=== PATIENT | female | born 1950 | race African-American/Black ===

== ENCOUNTER 2016-11-07 13:42 | Day surgery (SDC) | payer OTHER ==
[2016-11-07 14:26] VITALS: BMI 27.6
[2016-11-07 15:08] VITALS: TEMP 97.5
[2016-11-07 16:04] VITALS: BP 165/74; PULSE 50
--- NOTE | 2016-11-09 12:15 | PATH ---
Surgical Pathology Report Patient Name: TRINIDAD HAYES [facility]. Rec. #: [id number] /Age/Gender: 1950 (Age: 66) / F Account: [id number] Location: U-ENDOSCOPY Taken: 11/07/2016 Received: 11/08/2016 Reported: 11/09/2016 Physicians: Man Vital M.D. Specimen(s) Received A: BX PYLORIC INFLAMMATION B: BX ESOPHAGUS Clinical History Hiatal hernia Pyloric inflammation, 3 cm hiatal hernia, gastritis, bowel reflux Final Diagnosis A. PYLORUS, INFLAMMATION, BIOPSY: GASTRIC ANTRAL MUCOSA WITH MODERATE CHRONIC GASTRITIS WITH FOCAL INTESTINAL METAPLASIA AND REACTIVE GASTROPATHY. NEGATIVE FOR DYSPLASIA. IMMUNOSTAIN FOR H. PYLORI IS NEGATIVE FOR ORGANISMS. B. ESOPHAGUS, BIOPSY: SQUAMOUS EPITHELIUM WITH CHRONIC INFLAMMATION AND REFLUX TYPE CHANGES. NO COLUMNAR EPITHELIUM PRESENT (NO INTESTINAL METAPLASIA/MOON'S ESOPHAGUS IDENTIFIED). NO EVIDENCE OF EOSINOPHILIC ESOPHAGITIS. Electronically Signed Karan Mooney M.D. Gross Description A. Received in formalin, labeled "biopsy pyloric inflammation" are 2 harmon, irregular portions of soft tissue measuring 0.1 and 0.2 cm in greatest dimension. The specimens are submitted in toto in one cassette. B. Received in formalin, labeled "biopsy esophagus" are 2 harmon, irregular portions of soft tissue measuring 0.3 and 0.4 cm in greatest dimension. The specimens are submitted in toto in one cassette. 11/08/201611/08/2016
== END 2016-11-07 16:11 | disposition home or self-care (01) ==
LOC: JASU-ENDO 13:42
PROVIDERS: ATTEND Internal Medicine Gastroenterology
PROC: 0DB68ZX Excision of Stomach, Via Natural or Artificial Opening Endoscopic, Diagnostic (ICD-10-PCS; principal; 2016-11-07 14:30)
DX: K21.9 Gastro-esophageal reflux disease without esophagitis (principal); K29.60 Other gastritis without bleeding; K44.9 Diaphragmatic hernia without obstruction or gangrene
CPT/HCPCS: 88305-TC; 88342-TC

== ENCOUNTER 2017-02-02 12:52 | Emergency (ER) | payer OTHER ==
[2017-02-02 13:05] VITALS: BMI 27.9
[2017-02-02 14:09] LABS: BASOPHIL 1.7 % (0-2.0); EOSINOPHIL 2.8 % (0-4.5); MCH 28.7 pg (25.7-33.7); MEAN CELL VOLUME 89.6 fl (80-96); MEAN PLT VOLUME 8.7 fl (7.5-11.1); NEUTROPHILS 42.2 % (42.8-82.8); PLATELET COUNT 250 K/MM3 (134-434); WHITE BLOOD COUNT 6.3 K/mm3 (4.0-10.0)
[2017-02-02 14:30] LABS: INR 1.06 (0.82-1.09); PROTHROMBIN TIME (PATIENT) 11.7 SEC (9.98-11.88)
--- NOTE | 2017-02-02 14:39 | PDOC ---
History of Present Illness <Angela Garcia - Last Filed: 02/02/17 18:04> - History of Present Illness Initial Comments: 02/02/17 14:31 " The patient is a 66 year old female, with a significant past medical history of HIV, HLD, HTN, COPD, GERD and Hiatal Hernia, who presents to the emergency department with lightheadedness and generalized weakness for two days. The patient describes her dizziness as a sensation that she is about to faint. Denies room-spinning sensation. She denies any alleviating or aggravating factors to her dizziness. She denies double vision and blurred vision. Denies F/ C. Denies weakness on one side of her body. She denies chest pain, shortness of breath, headache. She denies fever, chills, nausea, vomit, diarrhea and constipation. She denies dysuria, frequency, urgency and hematuria. Allergies: NKDA Past surgical history: cholecystectomy, tonsillectomy, tubal ligation, left TKR [employer] - Dr. Jesus Vargas " <Timothy Sanchez - Last Filed: 02/02/17 19:03> - General Chief Complaint: Weakness Stated Complaint: WEAKNESS Time Seen by Provider: 02/02/17 13:30 Past History <Angela Garcia - Last Filed: 02/02/17 18:04> - Past Medical History Anemia: No Asthma: No Cancer: No Cardiac Disorders: No CVA: No COPD: Yes CHF: No Dementia: No Diabetes: No GI Disorders: Yes (REFLUX, HIATAL HERNIA) Disorders: No HTN: Yes Hypercholesterolemia: Yes HIV: Yes Liver Disease: No Seizures: No Thyroid Disease: No - Surgical History Abdominal Surgery: No Appendectomy: No Cardiac Surgery: No Cholecystectomy: Yes Lung Surgery: No Neurologic Surgery: No Orthopedic Surgery: Yes (left knee replacement 2009) - Psycho/Social/Smoking Cessation Hx Suicidal Ideation: No Smoking History: Former smoker Have you smoked in the past 12 months: Yes Number of Cigarettes Smoked Daily: 0 If you are a former smoker, when did you quit?: 10 YEARS Cigars Per Day: 0 Information on smoking cessation initiated: No Hx Alcohol Use: Yes (many yrs since last use) Drug/Substance Use Hx: Yes (none x 10+ years) Substance Use Type: Alcohol, Cocaine Hx Substance Use Treatment: Yes (detox, rehab) <Timothy Sanchez - Last Filed: 02/02/17 19:03> - Past Medical History Allergies/Adverse Reactions: Allergies Allergy/AdvReac Type Severity Reaction Status Date / Time Penicillins Allergy Severe Hives Verified 02/02/17 12:55 Shellfish Allergy Severe Itching Verified 02/02/17 12:55 propoxyphene HCl Allergy Mild Nausea Verified 02/02/17 12:55 [From Darvon] iodine [Iodine] AdvReac Severe Hives Verified 02/02/17 12:55 Sulfa (Sulfonamide AdvReac Mild Itching Verified 02/02/17 12:55 Antibiotics) Home Medications: Ambulatory Orders Vitamin B Complex 1 tab PO DAILY 03/31/16 Albuterol 0.083% Nebulizer Maureen [Ventolin 0.083% Nebulizer Soln -] 1 neb NEB Q4H #1 box 08/03/16 Atorvastatin Ca [Lipitor] 10 mg PO HS #30 tablet 08/03/16 Diclofenac Sodium [Voltaren] 100 gm TP QID #3 gel..gram. MDD 2gm 08/03/16 Diphenhydramine [Benadryl Capsule -] 50 tab PO HS PRN #30 capsule 08/03/16 Hydrochlorothiazide [Hctz -] 25 mg PO DAILY #30 tablet 08/03/16 Lisinopril 10 mg PO DAILY #30 tablet 08/03/16 Esomeprazole Magnesium 40 mg PO BID #60 capsule. 08/29/16 Loratadine [Claritin -] 10 mg PO DAILY #30 tablet 09/21/16 Darunavir Ethanolate [Prezista -] 1 tab PO DAILY #30 tab 10/27/16 Elviteg/Natasha/Emtric/Tenofo Ala [Genvoya Tablet] 1 tab PO DAILY #30 tab 10/27/16 Zolpidem Tartrate [Ambien] 10 mg PO HS PRN #30 tablet MDD 1 01/02/17 Oxycodone HCl/Acetaminophen [Percocet 10-325 mg Tablet] 1 each PO QID PRN #110 tablet MDD 4 01/11/17 Review of Systems - Review of Systems Comments:: 02/02/17 14:39 " GENERAL/CONSTITUTIONAL: (+) generalized weakness. No fever or chills. HEAD, EYES, EARS, NOSE AND THROAT: No change in vision. No ear pain or discharge. No sore throat. CARDIOVASCULAR: (+) lightheadedness. No chest pain or shortness of breath. RESPIRATORY: No cough, wheezing, or hemoptysis. GASTROINTESTINAL: No nausea, vomiting, diarrhea or constipation. GENITOURINARY: No dysuria, frequency, or change in urination. MUSCULOSKELETAL: No joint or muscle swelling or pain. No neck or back pain. SKIN: No rash NEUROLOGIC: No headache, loss of consciousness, or change in strength/ sensation. ENDOCRINE: No increased thirst. No abnormal weight change. HEMATOLOGIC/LYMPHATIC: No anemia, easy bleeding, or history of blood clots. ALLERGIC/IMMUNOLOGIC: No hives or skin allergy." <Timothy Sanchez - Last Filed: 02/02/17 19:03> *Physical Exam - Vital Signs Last Vital Signs Temp Pulse Resp BP Pulse Ox 98 F 47 L 18 192/75 98 02/02/17 12:58 02/02/17 12:58 02/02/17 12:58 02/02/17 12:58 02/02/17 12:58 <Angela Garcia - Last Filed: 02/02/17 18:04> - Vital Signs Last Vital Signs Temp Pulse Resp BP Pulse Ox 98 F 47 L 18 192/75 98 02/02/17 12:58 02/02/17 12:58 02/02/17 12:58 02/02/17 12:58 02/02/17 12:58 - Physical Exam Comments: 02/02/17 14:39 """GENERAL: Awake, alert, and fully oriented, in no acute distress HEAD: No signs of trauma EYES: PERRLA, EOMI, sclera anicteric, conjunctiva clear ENT: Auricles normal inspection, hearing grossly normal, nares patent, oropharynx clear without exudates. Moist mucosa NECK: Normal ROM, supple, no lymphadenopathy, JVD, or masses LUNGS: Breath sounds equal, clear to auscultation bilaterally. No wheezes, and no crackles HEART: Regular rate and rhythm, normal S1 and S2, no murmurs, rubs or gallops ABDOMEN: Soft, nontender, normoactive bowel sounds. No guarding, no rebound. No masses EXTREMITIES: Normal range of motion, no edema. No clubbing or cyanosis. No cords, erythema, or tenderness NEUROLOGICAL: Cranial nerves II through XII intact, 5/5 strength and sensation in all extremities, normal [id number], no nystagmus, no pronator drift SKIN: Warm, Dry, normal turgor, no rashes or lesions noted. """ <OuTimothy - Last Filed: 02/02/17 19:03> Heart Score/ECG Review - ECG Impressions Comment:: 02/02/17 14:40 NSR, rate 47, no MIKE/STDs, no TWIs, intervals wnl <Ou,Timothy - Last Filed: 02/02/17 19:03> ED Treatment Course - LABORATORY CBC & Chemistry Diagram: 02/02/17 13:35 02/02/17 13:35 - ADDITIONAL ORDERS Additional order review: Laboratory Results 02/02/17 02/02/17 02/02/17 15:44 13:51 13:50 INR PTT (Actin FS) Sodium Potassium Chloride Carbon Dioxide Anion Gap BUN Creatinine Creat Clearance w eGFR Random Glucose Lactic Acid 0.7 Calcium Total Bilirubin AST ALT Alkaline Phosphatase Creatine Kinase Cancelled Troponin I Cancelled Total Protein Albumin TSH Urine Color Ltyellow Urine Appearance Clear Urine pH 7.0 D Urine Protein Negative Urine Glucose (UA) Negative Urine Ketones Negative Urine Blood Negative Urine Nitrite Negative Urine Bilirubin Negative Urine Urobilinogen Negative Ur Leukocyte Esterase Negative 02/02/17 02/02/17 02/02/17 13:42 13:35 13:35 INR 1.06 PTT (Actin FS) 34.0 Sodium Cancelled Potassium Cancelled Chloride Cancelled Carbon Dioxide Cancelled Anion Gap Cancelled BUN Cancelled Creatinine Cancelled Creat Clearance w eGFR Cancelled Random Glucose Cancelled Lactic Acid Calcium Cancelled Total Bilirubin Cancelled AST Cancelled ALT Cancelled Alkaline Phosphatase Cancelled Creatine Kinase Troponin I Total Protein Cancelled Albumin Cancelled TSH Cancelled Urine Color Urine Appearance Urine pH Urine Protein Urine Glucose (UA) Urine Ketones Urine Blood Urine Nitrite Urine Bilirubin Urine Urobilinogen Ur Leukocyte Esterase 02/02/17 13:35 RBC 4.47 MCV 89.6 MCHC 32.0 RDW 18.0 H MPV 8.7 Neutrophils % 42.2 L Lymphocytes % 44.0 H Monocytes % 9.3 Eosinophils % 2.8 Basophils % 1.7 - RADIOLOGY Radiograph Interpretation: 02/02/17 18:03 EXAM#: TYPE/EXAM: RESULT: [id number] CT/HEAD CT WITHOUT CONTRAST Cranial CT without contrast Clinical information: weakness No intracranial hemorrhage is seen. There is no discrete infarct within the limitations of CT. Mild to moderate periventricular and subcortical microvascular ischemic gliosis is noted which is probably mildly increased in comparison to a prior CT study of 10/18/2013. There is no extra-axial fluid collection. No gross mass lesion is seen. The ventricles and cisterns appear unremarkable. Impression: No definite CT evidence of acute intracranial pathology. Mild to moderate periventricular and subcortical chronic microvascular ischemic changes. Reported By: Sebastien Espana MD 02/02/17 1721 <Angela Garcia - Last Filed: 02/02/17 18:04> - LABORATORY CBC & Chemistry Diagram: 02/02/17 13:35 02/02/17 17:10 - ADDITIONAL ORDERS Additional order review: Laboratory Results 02/02/17 02/02/17 13:42 13:35 INR 1.06 PTT (Actin FS) 34.0 02/02/17 13:35 RBC 4.47 MCV 89.6 MCHC 32.0 RDW 18.0 H MPV 8.7 Neutrophils % 42.2 L Lymphocytes % 44.0 H Monocytes % 9.3 Eosinophils % 2.8 Basophils % 1.7 - RADIOLOGY Radiology Studies Ordered: Category Date Time Status HEAD CT WITHOUT CONTRAST [CT] Stat CT Scan 02/02/17 13:42 Ordered CHEST X-RAY PORTABLE* [RAD] Stat Radiology 02/02/17 13:42 Completed <Timothy Sanchez - Last Filed: 02/02/17 19:03> Medical Decision Making - Medical Decision Making 02/02/17 15:00 Dr. Vargas, [employer], was paged overhead requesting a call back to [phone]. 02/02/17 15:40 Dr. Vargas was paged overhead requesting a call back to [phone]. 02/02/17 16:26 Dr. Vargas was paged via phone answering service requesting a call back to [phone] for a doctor to doctor consult 02/02/17 16:56 Dr. Vargas was paged a second time via phone answering service requesting a call back to [phone] for a doctor to doctor consult. I was informed Dr. Redding is covering Dr. Vargas today and will return the call shortly. 02/02/17 17:30 Dr. Vazquez returned the call and the patient's case was discussed. <Angela Garcia - Last Filed: 02/02/17 18:04> - Medical Decision Making 02/02/17 14:41 66 F with generalized weakness and presyncope, found to have HR in 40s. EKG is normal sinus. Pt is taking lisinopril and HCTZ for BP, no AV romel blocking agents. Pt with normal BP, making it unlikely that bradycardia is cause of lightheadedness. Will work up for other causes of weakness and lightheadedness, such as infection or metabolic derangement. Also consider intracranial process, though pt with no focal neuro deficits on exam. - Labs, trop, UA, CXR - CTH 02/02/17 18:56 CBC,CMP WBC 6.3 K/mm3 (4.0-10.0) 02/02/17 13:35 RBC 4.47 M/mm3 (3.60-5.2) 02/02/17 13:35 Hgb 12.8 GM/dL (10.7-15.3) 02/02/17 13:35 Hct 40.0 % (32.4-45.2) 02/02/17 13:35 MCV 89.6 fl (80-96) 02/02/17 13:35 MCH 28.7 pg (25.7-33.7) 02/02/17 13:35 MCHC 32.0 g/dl (32.0-36.0) 02/02/17 13:35 RDW 18.0 % (11.6-15.6) H 02/02/17 13:35 Plt Count 250 K/MM3 (134-434) 02/02/17 13:35 MPV 8.7 fl (7.5-11.1) 02/02/17 13:35 Neutrophils % 42.2 % (42.8-82.8) L 02/02/17 13:35 Lymphocytes % 44.0 % (8-40) H 02/02/17 13:35 Monocytes % 9.3 % (3.8-10.2) 02/02/17 13:35 Eosinophils % 2.8 % (0-4.5) 02/02/17 13:35 Basophils % 1.7 % (0-2.0) 02/02/17 13:35 Sodium 143 mmol/L (136-145) 02/02/17 17:10 Potassium 4.3 mmol/L (3.5-5.1) 02/02/17 17:10 Chloride 106 mmol/L (98-107) 02/02/17 17:10 Carbon Dioxide 29 mmol/L (21-32) 02/02/17 17:10 Anion Gap 8 (8-16) 02/02/17 17:10 BUN 8 mg/dL (7-18) D 02/02/17 17:10 Creatinine 0.6 mg/dL (0.55-1.02) D 02/02/17 17:10 Creat Clearance w eGFR > 60 (>60) 02/02/17 17:10 Random Glucose 75 mg/dL (74-106) 02/02/17 17:10 Lactic Acid 0.7 mmol/L (0.4-2.0) 02/02/17 13:50 Calcium 9.2 mg/dL (8.5-10.1) 02/02/17 17:10 Total Bilirubin 0.6 mg/dL (0.2-1.0) 02/02/17 17:10 AST 20 U/L (15-37) 02/02/17 17:10 ALT 22 U/L (12-78) 02/02/17 17:10 Alkaline Phosphatase 93 U/L (45-117) 02/02/17 17:10 Creatine Kinase 331 IU/L (26-192) H 02/02/17 17:10 Troponin I < 0.02 ng/ml (0.00-0.05) 02/02/17 17:10 B-Natriuretic Peptide 198.65 pg/ml (5-125) H 02/02/17 17:10 Total Protein 6.8 g/dl (6.4-8.2) 02/02/17 17:10 Albumin 3.8 g/dl (3.4-5.0) 02/02/17 17:10 TSH 0.69 uIU/ml (0.358-3.74) D 02/02/17 17:10 CTH negative CXR clear UA clean Infectious work up negative. Metabolic work up wnl. Troponin negative. Spoke with quarter lining smoother Dr. Vazquez and reviewed EKG with him. Given pt's normal BP, it is unlikely that pt's bradycardia is cause of pt's lightheadedness. Pt reassessed, now feels back to baseline. Is ambulatory with stable gait. Pt states she feels well and would like to go home. Stable for DC at this time. <Timothy Sanchez - Last Filed: 02/02/17 19:03> *DC/Admit/Observation/Transfer - Attestations Scribe Attestion: 02/02/17 18:04 Documentation prepared by Angela Garcia, acting as medical device for Timothy Sanchez MD <Angela Garcia - Last Filed: 02/02/17 18:04> - Attestations Physician Attestion: 02/02/17 19:03 I, Dr. Timothy Sanchez MD, attest that this document has been prepared under my direction and personally reviewed by me in its entirety. I further attest, that it accurately reflects all work, treatment, procedures and medical decision -making performed by me. <Timothy Sanchez - Last Filed: 02/02/17 19:03> Diagnosis at time of Disposition: Weakness - Discharge Dispostion Disposition: HOME - Referrals Referrals: Linda Hooks NP [Primary Care Provider] - Jesus Vargas MD [Staff Physician] - - Patient Instructions Printed Discharge Instructions: Dizziness, Nonvertigo Additional Instructions: You must follow up with your primary care doctor and quarter lining smoother for further work up of your lightheadedness. If you experience worsening or persistent symptoms, chest pain, shortness of breath, palpitations, or any other concerning symptoms, return to the ER immediately. Print Language: TAMAZIGHT
[2017-02-02 16:09] LABS: URINE APPEARANCE CLEAR; URINE BILIRUBIN NEGATIVE (NEGATIVE); URINE BLOOD NEGATIVE (NEGATIVE); URINE COLOR LTYELLOW; URINE GLUCOSE (UA) NEGATIVE (NEGATIVE); URINE KETONE NEGATIVE (NEGATIVE); URINE LEUK ESTERASE NEGATIVE (NEGATIVE); URINE NITRITE NEGATIVE (NEGATIVE); URINE PROTEIN NEGATIVE (NEGATIVE); URINE UROBILINOGEN NEGATIVE mg/dL (0.2-1.0)
[2017-02-02 18:06] VITALS: BP 164/75; PULSE 54; TEMP 98.2
[2017-02-02 18:27] LABS: ALBUMIN 3.8 g/dl (3.4-5.0); ANION GAP 8 (8-16); BILIRUBIN,TOTAL 0.6 mg/dL (0.2-1.0); CALCIUM 9.2 mg/dL (8.5-10.1); CO2 29 mmol/L (21-32); CREATININE 0.6 mg/dL (0.55-1.02); GLUCOSE,RANDOM 75 mg/dL (74-106); SGOT/AST 20 U/L (15-37); SGPT/ALT 22 U/L (12-78); TOT PROT 6.8 g/dl (6.4-8.2)
[2017-02-02 18:28] LABS: ALK PHOS 93 U/L (45-117)
[2017-02-02 18:30] LABS: CPK 331 IU/L (26-192); TROPONIN I < 0.02 ng/ml (0.00-0.05)
--- NOTE | 2017-02-03 09:07 | EKG ---
Test Reason : Blood Pressure : / mmHG Vent. Rate : 047 BPM Atrial Rate : 047 BPM P-R Int : 140 ms QRS Dur : 070 ms QT Int : 466 ms P-R-T Axes : 036 012 017 degrees QTc Int : 412 ms SINUS BRADYCARDIA POSSIBLE LEFT ATRIAL ENLARGEMENT NONSPECIFIC ST ABNORMALITY WHEN COMPARED WITH ECG OF 15-JUN-2015 14:38, NO SIGNIFICANT CHANGE WAS FOUND Confirmed by TIMOTHY NARVAEZ MD ([id number]) on 02/03/2017 9:07:06 AM Referred By: Confirmed By:TIMOTHY NARVAEZ MD
== END 2017-02-02 19:18 | disposition home or self-care (01) ==
LOC: JER 12:52
DX: R53.1 Weakness (principal); Z21 Asymptomatic human immunodeficiency virus [HIV] infection status; E78.5 Hyperlipidemia, unspecified; I10 Essential (primary) hypertension; J44.9 Chronic obstructive pulmonary disease, unspecified; K21.9 Gastro-esophageal reflux disease without esophagitis
CPT/HCPCS: 36415; 70450-TC; 71010-TC; 80053; 81003; 82553; 83605; 83880; 84443; 84484; 85025; 85610; 85730; 93005; 93010; 99285-25; G0463-25

== ENCOUNTER 2018-02-26 12:27 | Inpatient (IN) | payer OTHER ==
[2018-02-26 12:37] VITALS: BMI 27.1
--- NOTE | 2018-02-26 13:18 | PDOC ---
Attending Attestation - Resident Resident Name: AngelnhungDaniel - ED Attending Attestation I have performed the following: I have examined & evaluated the patient, The case was reviewed & discussed with the resident, I agree w/resident's findings & plan, Exceptions are as noted - HPI HPI: 02/26/18 15:04 The patient is a 67 year old female, with a significant past medical history of HIV (currently undetectable taking Truvada), HLD, HTN, COPD, GERD and Hiatal Hernia, who presents to the emergency department with generalized weakness, dizziness, and low heart rate sent by her PCP today. She states she has been feeling lightheaded and dizzy for about a week before being see by her PCP for a routine visit. The patient denies chest pain, shortness of breath, headache, neck pain..The patient denies fever, chills, nausea, vomit, diarrhea and constipation. The patient denies dysuria, frequency, urgency and hematuria. Pt denies any focla numbnes/tingling/weakness. Denies any vision changes, double vision, speech difficulty. Allergies: NKDA Past surgical history: cholecystectomy, tonsillectomy, tubal ligation, left TKR [employer] - Dr. Jesus Vargas PCP: Nicole Hooks - Physicial Exam PE: 02/26/18 15:05 GENERAL: The patient is awake, alert, and fully oriented, Nontoxic - in no acute distress. HEAD: Normocephalic, atraumatic. EYES: extraocular movements intact, sclera anicteric, conjunctiva clear.No nystagmus ENT: Normal voice, Moist mucous membranes. NECK: Normal range of motion, supple LUNGS: Breath sounds equal, clear to auscultation bilaterally. No wheezes, no rhonchi, no rales. HEART: bradycardic, no mrg ABDOMEN: Soft, nontender, normoactive bowel sounds. No guarding, no rebound. . No CVA tenderness EXTREMITIES: Normal range of motion, no edema. No clubbing or cyanosis. No cords, erythema, or tenderness. NEUROLOGICAL: No facial assymetry, Normal speech, Normal finger to nose, normal rapid alternating movements, normal 5/5 strength in upper and lower extremities, no drift PSYCH: Normal mood, normal affect. SKIN: Warm, Dry, normal turgor, - Medical Decision Making 02/26/18 15:06 Will obtain blood work to rule out anemia, metabolic derangements, EKG noted for sinus bradycardia Intact neurologic exam including no signs of dysmetria 02/26/18 17:06 pts labs reviewed pts HR persistently in the mid to high 40s bp not hypotensive will admit for further management per PMD Heart Score/ECG Review - ECG Impressions Comment:: 02/26/18 15:07 Twelve-lead EKG was performed and reviewed by me. There is normal sinus rhythm with a rate of 48 Nonspecific T-wave inversion in lead 3 impL sinus braydcardia
--- NOTE | 2018-02-26 13:38 | PDOC ---
History of Present Illness - General Chief Complaint: Irregular Heart Beat Stated Complaint: IRREGULAR HEARTBEAT Time Seen by Provider: 02/26/18 13:05 History Source: Patient Exam Limitations: No Limitations - History of Present Illness Initial Comments: 02/26/18 13:33 Patient is 67F with history of HIV (undetectable viral levels, CD4 678 on 11/10/17 ), HTN, GERD, hiatal hernia sent in by her PCP for weakness, dizziness and bradycardia. Patient reports that her HR was 43 in the office. Endorses chest pain on the left side that is worse with palpation. Endorses mild shortness of breath. Patient states that she feels dizzy all the time, but denies any cardiac problems and procedures. Patient endorses compliance with HIV medication (Truvada and Persista). Denies leg swelling, recent travel, history of blood clots. Denies fevers, chills, nausea, vomiting. Past History - Past Medical History Allergies/Adverse Reactions: Allergies Allergy/AdvReac Type Severity Reaction Status Date / Time Penicillins Allergy Severe Hives Verified 02/26/18 12:32 Shellfish Allergy Severe Itching Verified 02/26/18 12:32 propoxyphene HCl Allergy Mild Nausea Verified 02/26/18 12:32 [From Darvon] iodine [Iodine] AdvReac Severe Hives Verified 02/26/18 12:32 Sulfa (Sulfonamide AdvReac Mild Itching Verified 02/26/18 12:32 Antibiotics) Home Medications: Ambulatory Orders Esomeprazole Magnesium 40 mg PO BID #60 capsule. 10/03/17 Diphenhydramine HCl [Benadryl -] 1 - 2 cap PO BID PRN #60 capsule MDD 4 Hydrocortisone 2.5% Topical Cr [Anusol-Hc -] 1 applic RC BID #1 tube 12/29/17 Losartan Potassium [Cozaar -] 1 tab PO DAILY 12/29/17 Baclofen 10 mg PO TID PRN #90 tablet 01/08/18 Ergocalciferol [Vitamin D2] 50,000 unit PO Q7D@1000 #4 capsule 01/08/18 Gabapentin [Neurontin -] 300 mg PO Q8H #90 capsule 01/08/18 Albuterol Sulfate Inhaler - [Ventolin HFA Inhaler -] 2 inh PO Q4H #1 inhaler Atorvastatin Calcium [Lipitor] 10 mg PO HS #30 tablet 01/29/18 Darunavir Ethanolate [Prezista -] 600 mg PO BID #60 tab 01/29/18 Emtricitabine/Tenofovir [Truvada -] 1 tab PO DAILY #30 tablet 01/29/18 Hydrochlorothiazide [Hctz -] 25 mg PO DAILY #30 tablet 01/29/18 Ritonavir [Norvir -] 100 mg PO BID #60 tab 01/29/18 Zolpidem Tartrate [Ambien] 10 mg PO HS PRN #30 tablet MDD 1 01/29/18 Naproxen 500 mg PO BID #60 tablet 02/07/18 Oxycodone HCl/Acetaminophen [Percocet 10-325 mg Tablet] 1 each PO TID #90 tablet MDD 3 02/07/18 Anemia: No Asthma: No Cancer: No Cardiac Disorders: No CVA: No COPD: No CHF: No DVT: No Dementia: No Diabetes: No GI Disorders: Yes (REFLUX, HIATAL HERNIA) Disorders: No HTN: Yes Hypercholesterolemia: Yes Liver Disease: No Seizures: No Thyroid Disease: No - Surgical History Abdominal Surgery: No Appendectomy: No Cardiac Surgery: No Cholecystectomy: Yes Lung Surgery: No Neurologic Surgery: No Orthopedic Surgery: Yes (left knee replacement 2009) - Suicide/Smoking/Psychosocial Hx Smoking History: Former smoker Have you smoked in the past 12 months: No Number of Cigarettes Smoked Daily: 0 If you are a former smoker, when did you quit?: 10 YEARS Cigars Per Day: 0 Information on smoking cessation initiated: No Hx Alcohol Use: Yes (many yrs since last use) Drug/Substance Use Hx: Yes (none x 10+ years) Substance Use Type: None Hx Substance Use Treatment: Yes (detox, rehab) Review of Systems - Review of Systems Comments:: 02/26/18 13:37 GENERAL/CONSTITUTIONAL: No fever or chills. No weakness. HEAD, EYES, EARS, NOSE AND THROAT: No change in vision. No sore throat. CARDIOVASCULAR: + chest pain +shortness of breath RESPIRATORY: No cough, wheezing, or hemoptysis. GASTROINTESTINAL: No nausea, vomiting, diarrhea or constipation. GENITOURINARY: No dysuria, frequency, or change in urination. MUSCULOSKELETAL: No joint or muscle swelling or pain. No neck or back pain. SKIN: No rash NEUROLOGIC: No headache, +vertigo, no loss of consciousness, or change in strength/sensation. ENDOCRINE: No increased thirst. No abnormal weight change HEMATOLOGIC/LYMPHATIC: No anemia, easy bleeding, or history of blood clots. ALLERGIC/IMMUNOLOGIC: No hives or skin allergy. *Physical Exam - Vital Signs Last Vital Signs Temp Pulse Resp BP Pulse Ox 98.1 F 48 L 18 173/64 97 02/26/18 12:33 02/26/18 12:33 02/26/18 12:33 02/26/18 12:33 02/26/18 12:33 - Physical Exam Comments: 02/26/18 13:38 GENERAL: Awake, alert, and fully oriented, in no acute distress HEAD: No signs of trauma, normocephalic, atraumatic EYES: PERRLA, EOMI, sclera anicteric, conjunctiva clear ENT: Auricles normal inspection, hearing grossly normal, nares patent, oropharynx clear without exudates. Moist mucosa NECK: Normal ROM, supple, no lymphadenopathy, JVD, or masses LUNGS: No distress, speaks full sentences, clear to auscultation bilaterally HEART: Regular rhythm, bradycardic, normal S1 and S2, no murmurs, rubs or gallops, peripheral pulses normal and equal bilaterally. ABDOMEN: Soft, nontender, normoactive bowel sounds. No guarding, no rebound. No masses EXTREMITIES: Normal inspection, Normal range of motion, no edema. No clubbing or cyanosis. NEUROLOGICAL: Cranial nerves II through XII grossly intact. Normal speech, no focal sensorimotor deficits SKIN: Warm, Dry, normal turgor, no rashes or lesions noted. ED Treatment Course - LABORATORY CBC & Chemistry Diagram: 02/26/18 13:12 02/26/18 13:12 - RADIOLOGY Radiology Studies Ordered: Category Date Time Status CHEST X-RAY PORTABLE* [RAD] Stat Radiology 02/26/18 13:12 Taken Medical Decision Making - Medical Decision Making 02/26/18 13:41 Patient is 67F with history of HIV, HTN, GERD, hiatal hernia here today with weakness and bradycardia. Vital signs show HR of 48. Patient has been bradycardic in the past. DDx includes, but is not limited to: ACS, arrhythmia, electrolyte abnormality, medication side effect. Will do cbc, cmp, trop, pt/inr , ekg, cxr. EKG shows sinus bradycardia with rate of 48 [address] elevations/ depressions. Inverted t wave in III. Normal axis. Normal intervals. 02/26/18 15:36 CBC, CMP normal. PT/INR normal. Troponin undetectable. Patient states that she still feels weak/dizzy. Abdulaziz frederick hospitalist. 02/26/18 23:33 Admitted to [facility]. *DC/Admit/Observation/Transfer Diagnosis at time of Disposition: Bradycardia - Discharge Dispostion Condition at time of disposition: Stable Decision to Admit order: Yes - Referrals - Patient Instructions - Post Discharge Activity
[2018-02-26 14:41] LABS: URINE APPEARANCE CLEAR; URINE BILIRUBIN NEGATIVE (<2.0 mg/dL); URINE COLOR STRAW; URINE GLUCOSE (UA) NEGATIVE (NEGATIVE); URINE KETONE NEGATIVE (NEGATIVE); URINE LEUK ESTERASE NEGATIVE (NEGATIVE); URINE NITRITE NEGATIVE (NEGATIVE); URINE PROTEIN NEGATIVE (NEGATIVE); URINE UROBILINOGEN NEGATIVE mg/dL (0.2-1.0)
[2018-02-26 14:41] LABS: BASO % 2.3 % (0-2.0); EOS % 3.2 % (0-4.5); HEMATOCRIT 38.8 % (32.4-45.2); HEMOGLOBIN 12.6 GM/dL (10.7-15.3); LYMPH % 39.5 % (8-40); MCH 29.3 pg (25.7-33.7); MCHC 32.6 g/dl (32.0-36.0); MEAN CELL VOLUME 89.8 fl (80-96); MEAN PLT VOLUME 9.2 fl (7.5-11.1); MONO % 8.6 % (3.8-10.2); NEUT % 46.4 % (42.8-82.8); PLATELET COUNT 243 K/MM3 (134-434); RBC 4.32 M/mm3 (3.60-5.2); RDW 16.2 % (11.6-15.6); WHITE BLOOD COUNT 5.5 K/mm3 (4.0-10.0)
[2018-02-26 14:55] LABS: EPI CELLS RARE /HPF (FEW); URINE HYALINE CAST 7 /lpf; URINE MUCUS RARE
[2018-02-26 15:01] LABS: INR 1.06 (0.83-1.09)
[2018-02-26 15:08] LABS: ALBUMIN 3.8 g/dl (3.4-5.0); ALK PHOS 100 U/L (45-117); ANION GAP 6 MMOL/L (8-16); BILIRUBIN,TOTAL 0.5 mg/dL (0.2-1); BLOOD UREA NITROGEN 14 mg/dL (7-18); CALCIUM 8.4 mg/dL (8.5-10.1); CHLORIDE 109 mmol/L (98-107); CO2 26 mmol/L (21-32); CREATININE 0.6 mg/dL (0.55-1.3); GLUCOSE,RANDOM 70 mg/dL (74-106); MAGNESIUM 2.2 mg/dL (1.8-2.4); POTASSIUM 3.8 mmol/L (3.5-5.1); SGOT/AST 25 U/L (15-37); SGPT/ALT 31 U/L (13-61); SODIUM 142 mmol/L (136-145); TOT PROT 6.4 g/dl (6.4-8.2)
[2018-02-26] MEDS ORDERED: SODIUM CHLORIDE 1,000 ML IV STA (15:36)
--- NOTE | 2018-02-26 18:07 | EKG ---
Test Reason : Blood Pressure : / mmHG Vent. Rate : 048 BPM Atrial Rate : 048 BPM P-R Int : 136 ms QRS Dur : 074 ms QT Int : 452 ms P-R-T Axes : 044 026 021 degrees QTc Int : 403 ms SINUS BRADYCARDIA WITH PREMATURE ATRIAL COMPLEXES POSSIBLE LEFT ATRIAL ENLARGEMENT BORDERLINE ECG WHEN COMPARED WITH ECG OF 22-DEC-2017 10:29, PREMATURE ATRIAL COMPLEXES ARE NOW PRESENT T WAVE VARIATION Confirmed by HENOK COFFEY, NUUN ([id number]) on 02/26/2018 6:06:48 PM Referred By: Confirmed By:NUNU WHITING MD
--- NOTE | 2018-02-26 20:13 | HP ---
Admitting History and Physical - Primary Care Physician PCP: Tata Saenz - Admission History of Present Illness: 67 year old female, with a significant past medical history of HIV (currently undetectable taking Truvada), HLD, HTN, COPD, GERD and Hiatal Hernia, who presents to the emergency department with generalized weakness, dizziness, and low heart rate sent by her PCP today. She states she has been feeling lightheaded and dizzy for about a week before being see by her PCP for a routine visit. - Past Medical History Cardiovascular: Yes: HTN, Hyperlipdemia ...: No Infectious Disease: Yes: HIV - Smoking History Smoking history: Former smoker Have you smoked in the past 12 months: No Aproximately how many cigarettes per day: 0 If you are a former smoker, when did you quit?: 10 YEARS - Alcohol/Substance Use Hx Alcohol Use: Yes (many yrs since last use) Home Medications - Allergies Allergies/Adverse Reactions: Allergies Allergy/AdvReac Type Severity Reaction Status Date / Time Penicillins Allergy Severe Hives Verified 02/26/18 12:32 Shellfish Allergy Severe Itching Verified 02/26/18 12:32 propoxyphene HCl Allergy Mild Nausea Verified 02/26/18 12:32 [From Darvon] iodine [Iodine] AdvReac Severe Hives Verified 02/26/18 12:32 Sulfa (Sulfonamide AdvReac Mild Itching Verified 02/26/18 12:32 Antibiotics) - Home Medications Home Medications: Ambulatory Orders Esomeprazole Magnesium 40 mg PO BID #60 capsule. 10/03/17 Diphenhydramine HCl [Benadryl Capsule -] 1 - 2 cap PO BID PRN #60 capsule MDD 4 11/10/17 Hydrocortisone 2.5% Topical Cr [Anusol-Hc -] 1 applic RC BID #1 tube 12/29/17 Losartan Potassium [Cozaar -] 1 tab PO DAILY 12/29/17 Baclofen 10 mg PO TID PRN #90 tablet 01/08/18 Ergocalciferol [Vitamin D2] 50,000 unit PO Q7D@1000 #4 capsule 01/08/18 Gabapentin [Neurontin -] 300 mg PO Q8H #90 capsule 01/08/18 Albuterol Sulfate Inhaler - [Ventolin HFA Inhaler -] 2 inh PO Q4H #1 inhaler Atorvastatin Calcium [Lipitor] 10 mg PO HS #30 tablet 01/29/18 Darunavir Ethanolate [Prezista -] 600 mg PO BID #60 tab 01/29/18 Emtricitabine/Tenofovir [Truvada -] 1 tab PO DAILY #30 tablet 01/29/18 Hydrochlorothiazide [Hctz -] 25 mg PO DAILY #30 tablet 01/29/18 Ritonavir [Norvir -] 100 mg PO BID #60 tab 01/29/18 Zolpidem Tartrate [Ambien] 10 mg PO HS PRN #30 tablet MDD 1 01/29/18 Naproxen 500 mg PO BID #60 tablet 02/07/18 Oxycodone HCl/Acetaminophen [Percocet 10-325 mg Tablet] 1 each PO TID #90 tablet MDD 3 02/07/18 Family Disease History - Family Disease History Family Disease History: Diabetes: Brother (1 brother), Heart Disease: Brother, [place]: Grandparent (mat gma br ca, pat gfa tb), Father (lung ca age 88), Other: Mother ( 85 natural causes), Sister (2 sisters a&w) Physical Examination Vital Signs: Vital Signs Temperature 98 F 02/26/18 18:49 Pulse Rate 58 L 02/26/18 18:49 Respiratory Rate 18 02/26/18 18:49 Blood Pressure 146/72 02/26/18 18:49 O2 Sat by Pulse Oximetry (%) 98 02/26/18 15:08 Constitutional: Yes: No Distress HENT: Yes: Atraumatic Neck: Yes: Supple Cardiovascular: Yes: Regular Rate and Rhythm Respiratory: Yes: CTA Bilaterally Gastrointestinal: Yes: Normal Bowel Sounds Extremities: Yes: WNL Edema: No Neurological: Yes: Alert, Oriented Labs: CBC, BMP 02/26/18 13:12 02/26/18 13:12 Problem List - Problems (1) Dizziness Assessment/Plan: resolved will monitor on tele Code(s): R42 - DIZZINESS AND GIDDINESS (2) Bradycardia Assessment/Plan: awaiting cardiology input tele monitoring Code(s): R00.1 - BRADYCARDIA, UNSPECIFIED (3) HIV (human immunodeficiency virus infection) Assessment/Plan: on meds stabel Code(s): Z21 - ASYMPTOMATIC HUMAN IMMUNODEFICIENCY VIRUS INFECTION STATUS (4) Hypercholesteremia Assessment/Plan: on meds stable Code(s): E78.0 - PURE HYPERCHOLESTEROLEMIA * DO NOT USE * (5) Hypertension Assessment/Plan: on meds Code(s): I10 - ESSENTIAL (PRIMARY) HYPERTENSION Qualifiers: Hypertension type: essential hypertension Qualified Code(s): I10 - Essential (primary) hypertension Assessment/Plan Laboratory Results - last 24 hr 02/26/18 02/26/18 02/26/18 13:12 13:12 13:12 WBC 5.5 RBC 4.32 Hgb 12.6 Hct 38.8 MCV 89.8 MCH 29.3 MCHC 32.6 RDW 16.2 H Plt Count 243 MPV 9.2 Absolute Neuts (auto) 2.6 Neutrophils % 46.4 Lymphocytes % 39.5 Monocytes % 8.6 Eosinophils % 3.2 D Basophils % 2.3 H Nucleated RBC % 0 PT with INR 12.00 INR 1.06 Sodium 142 Potassium 3.8 Chloride 109 H Carbon Dioxide 26 Anion Gap 6 L BUN 14 Creatinine 0.6 Creat Clearance w eGFR > 60 Random Glucose 70 L Calcium 8.4 L Magnesium 2.2 Total Bilirubin 0.5 AST 25 ALT 31 Alkaline Phosphatase 100 Creatine Kinase 404 H Creatine Kinase Index 0.9 CK-MB (CK-2) 3.8 H Troponin I < 0.02 Total Protein 6.4 Albumin 3.8 Urine Color Urine Appearance Urine pH Ur Specific [place] Urine Protein Urine Glucose (UA) Urine Ketones Urine Blood Urine Nitrite Urine Bilirubin Urine Urobilinogen Ur Leukocyte Esterase Urine WBC (Auto) Urine RBC (Auto) Ur Epithelial Cells Hyaline Casts Urine Mucus 02/26/18 14:20 WBC RBC Hgb Hct MCV MCH MCHC RDW Plt Count MPV Absolute Neuts (auto) Neutrophils % Lymphocytes % Monocytes % Eosinophils % Basophils % Nucleated RBC % PT with INR INR Sodium Potassium Chloride Carbon Dioxide Anion Gap BUN Creatinine Creat Clearance w eGFR Random Glucose Calcium Magnesium Total Bilirubin AST ALT Alkaline Phosphatase Creatine Kinase Creatine Kinase Index CK-MB (CK-2) Troponin I Total Protein Albumin Urine Color Straw Urine Appearance Clear Urine pH 5.0 D Ur Specific [place] 1.008 Urine Protein Negative Urine Glucose (UA) Negative Urine Ketones Negative Urine Blood 1+ H Urine Nitrite Negative Urine Bilirubin Negative Urine Urobilinogen Negative Ur Leukocyte Esterase Negative Urine WBC (Auto) 1 Urine RBC (Auto) 1 Ur Epithelial Cells Rare Hyaline Casts 7 Urine Mucus Rare Active Medications Generic Name Dose Route Start Last Admin Trade Name Freq PRN Reason Stop Dose Admin Atorvastatin Calcium 10 mg 02/26/18 22:00 Lipitor - PO HS BRYAN Baclofen 10 mg 02/26/18 20:14 Lioresal - PO Q8H PRN MUSCLE SPASMS Darunavir 600 mg 02/26/18 22:00 Prezista - PO BID [facility] Emtricitabine/Tenofovir 1 tab 02/27/18 10:00 Truvada PO DAILY [facility] Gabapentin 300 mg 02/26/18 22:00 Neurontin - PO TID [facility] Hydrochlorothiazide 25 mg 02/27/18 10:00 Hctz - PO DAILY [facility] Losartan Potassium 25 mg 02/27/18 10:00 Cozaar - PO DAILY [facility] Ritonavir 100 mg 02/26/18 22:00 Norvir - PO BID BRYAN
[2018-02-26] MEDS ORDERED: BACLOFEN 10 MG TABLET (FP) PO PRN (20:14)
[2018-02-26] MEDS: DARUNAVIR ETHANOLATE 600 MG TAB PO SCH (23:00)
[2018-02-26] MEDS: RITONAVIR 100 MG TABLET PO SCH (23:00)
[2018-02-26] MEDS: GABAPENTIN 300 MG CAPSULE (FP) PO SCH (23:00)
[2018-02-26] MEDS: ATORVASTATIN CA 10 MG TABLET (FP) PO SCH (23:00)
[2018-02-27] MEDS: GABAPENTIN 300 MG CAPSULE (FP) PO SCH ×3 (06:14→21:01)
[2018-02-27] MEDS: DARUNAVIR ETHANOLATE 600 MG TAB PO SCH ×2 (09:56→21:01)
[2018-02-27] MEDS: HYDROCHLOROTHIAZIDE 25 MG TABLET (FP) PO SCH (09:56)
[2018-02-27] MEDS: LOSARTAN POTASSIUM 25 MG TABLET PO SCH (09:56)
[2018-02-27] MEDS: RITONAVIR 100 MG TABLET PO SCH ×2 (09:56→21:02)
[2018-02-27] MEDS: EMTRICITABINE 200MG/TENOFOVIR 300MG PO SCH (09:57)
--- NOTE | 2018-02-27 19:55 | PN ---
Progress Note, Physician - Current Medication List Current Medications: Active Medications Atorvastatin Calcium (Lipitor -) 10 mg PO HS [facility] Last Admin: 02/26/18 23:00 Dose: 10 mg Baclofen (Lioresal -) 10 mg PO Q8H PRN PRN Reason: MUSCLE SPASMS Darunavir (Prezista -) 600 mg PO BID [facility] Last Admin: 02/27/18 09:56 Dose: 600 mg Emtricitabine/Tenofovir (Truvada) 1 tab PO DAILY [facility] Last Admin: 02/27/18 09:57 Dose: 1 tab Gabapentin (Neurontin -) 300 mg PO TID [facility] Last Admin: 02/27/18 14:00 Dose: Not Given Hydrochlorothiazide (Hctz -) 25 mg PO DAILY [facility] Last Admin: 02/27/18 09:56 Dose: 25 mg Losartan Potassium (Cozaar -) 25 mg PO DAILY [facility] Last Admin: 02/27/18 09:56 Dose: 25 mg Ritonavir (Norvir -) 100 mg PO BID [facility] Last Admin: 02/27/18 09:56 Dose: 100 mg - Objective Vital Signs: Vital Signs Temperature 98.2 F 02/27/18 17:00 Pulse Rate 49 L 02/27/18 17:00 Respiratory Rate 20 02/27/18 17:00 Blood Pressure 151/71 02/27/18 17:00 O2 Sat by Pulse Oximetry (%) 97 02/27/18 09:00 Constitutional: Yes: No Distress HENT: Yes: Atraumatic Neck: Yes: Supple Cardiovascular: Yes: Regular Rate and Rhythm Respiratory: Yes: CTA Bilaterally Gastrointestinal: Yes: Normal Bowel Sounds Extremities: Yes: WNL Neurological: Yes: Alert, Oriented Labs: CBC, BMP 02/26/18 13:12 02/26/18 13:12 INR, PTT INR 1.06 (0.83-1.09) 02/26/18 13:12 Problem List - Problems (1) Dizziness Assessment/Plan: resolved Code(s): R42 - DIZZINESS AND GIDDINESS (2) Bradycardia Assessment/Plan: awaiting cardiology input Code(s): R00.1 - BRADYCARDIA, UNSPECIFIED (3) HIV (human immunodeficiency virus infection) Assessment/Plan: on meds stabel Code(s): Z21 - ASYMPTOMATIC HUMAN IMMUNODEFICIENCY VIRUS INFECTION STATUS (4) Hypercholesteremia Assessment/Plan: on meds stable Code(s): E78.0 - PURE HYPERCHOLESTEROLEMIA * DO NOT USE * (5) Hypertension Assessment/Plan: on meds Code(s): I10 - ESSENTIAL (PRIMARY) HYPERTENSION
[2018-02-27] MEDS ORDERED: PT OWN MED DRAWER 7, Y5N ONE (20:56)
[2018-02-27] MEDS: ATORVASTATIN CA 10 MG TABLET (FP) PO SCH (21:01)
[2018-02-28 05:38] VITALS: BP 126/63; PULSE 44; TEMP 97.6
[2018-02-28] MEDS: GABAPENTIN 300 MG CAPSULE (FP) PO SCH ×2 (05:51→13:30)
[2018-02-28] MEDS: HYDROCHLOROTHIAZIDE 25 MG TABLET (FP) PO SCH (09:03)
[2018-02-28] MEDS: LOSARTAN POTASSIUM 25 MG TABLET PO SCH (09:03)
[2018-02-28] MEDS: DARUNAVIR ETHANOLATE 600 MG TAB PO SCH (09:04)
[2018-02-28] MEDS: RITONAVIR 100 MG TABLET PO SCH (09:04)
[2018-02-28] MEDS: EMTRICITABINE 200MG/TENOFOVIR 300MG PO SCH (09:04)
--- NOTE | 2018-02-28 11:40 | CON.CARD ---
Consult Consult Specialty:: Cardiology Referred by:: Tata Saenz MD Reason for Consultation:: Light-headedness and bradycardia - History of Present Illness Chief Complaint: Light-headedness and bradycardia History of Present Illness: Patient is 67F with history of HIV (undetectable viral levels, CD4 678 on 11/10/17 ), HTN, hyperlipidemia, GERD, hiatal hernia, COPD, last saw Dr. Vargas 12/08/2017 sent in by her PCP for weakness, dizziness and bradycardia 2 days ago, symptoms have since resolved, telemetry shows SB 40s-50s with appropriate rise with activity. She is bradycardic overnight c/w untreated OSAS in hospital, uses cpap at home. She denies chest pain, dyspnea, near or true syncope, palpitations , orthopnea, PND or LE edema, she is not on AV romel blockers. - History Source History Provided By: Patient Limitations to Obtaining History: No Limitations - Past Medical History Cardio/Vascular: Yes: HTN, Hyperlipdemia ...: No Infectious Disease: Yes: HIV - Alcohol/Substance Use Hx Alcohol Use: Yes (many yrs since last use) - Smoking History Smoking history: Former smoker Have you smoked in the past 12 months: No Aproximately how many cigarettes per day: 0 If you are a former smoker, when did you quit?: 10 YEARS Home Medications - Allergies Allergies/Adverse Reactions: Allergies Allergy/AdvReac Type Severity Reaction Status Date / Time Penicillins Allergy Severe Hives Verified 02/26/18 12:32 Shellfish Allergy Severe Itching Verified 02/26/18 12:32 propoxyphene HCl Allergy Mild Nausea Verified 02/26/18 12:32 [From Darvon] iodine [Iodine] AdvReac Severe Hives Verified 02/26/18 12:32 Sulfa (Sulfonamide AdvReac Mild Itching Verified 02/26/18 12:32 Antibiotics) - Home Medications Home Medications: Ambulatory Orders Esomeprazole Magnesium 40 mg PO BID #60 capsule. 10/03/17 Diphenhydramine HCl [Benadryl -] 1 - 2 cap PO BID PRN #60 capsule MDD 4 Hydrocortisone 2.5% Topical Cr [Anusol-Hc -] 1 applic RC BID #1 tube 12/29/17 Losartan Potassium [Cozaar -] 1 tab PO DAILY 12/29/17 Baclofen 10 mg PO TID PRN #90 tablet 01/08/18 Ergocalciferol [Vitamin D2] 50,000 unit PO Q7D@1000 #4 capsule 01/08/18 Gabapentin [Neurontin -] 300 mg PO Q8H #90 capsule 01/08/18 Albuterol Sulfate Inhaler - [Ventolin HFA Inhaler -] 2 inh PO Q4H #1 inhaler Atorvastatin Calcium [Lipitor] 10 mg PO HS #30 tablet 01/29/18 Darunavir Ethanolate [Prezista -] 600 mg PO BID #60 tab 01/29/18 Emtricitabine/Tenofovir [Truvada -] 1 tab PO DAILY #30 tablet 01/29/18 Hydrochlorothiazide [Hctz -] 25 mg PO DAILY #30 tablet 01/29/18 Ritonavir [Norvir -] 100 mg PO BID #60 tab 01/29/18 Zolpidem Tartrate [Ambien] 10 mg PO HS PRN #30 tablet MDD 1 01/29/18 Naproxen 500 mg PO BID #60 tablet 02/07/18 Oxycodone HCl/Acetaminophen [Percocet 10-325 mg Tablet] 1 each PO TID #90 tablet MDD 3 02/07/18 Family Disease History - Family Disease History Family Disease History: Diabetes: Brother (1 brother), Heart Disease: Brother, [place]: Grandparent (mat gma br ca, pat gfa tb), Father (lung ca dec'd age 88), Other: Mother (d 85 natural causes), Sister (2 sisters a&w) Review of Systems - Review of Systems Constitutional: reports: Weakness Cardiovascular: reports: No Symptoms Respiratory: reports: No Symptoms Gastrointestinal: reports: No Symptoms Genitourinary: reports: No Symptoms Musculoskeletal: reports: Back Pain Neurological: reports: Dizziness Endocrine: reports: No Symptoms Hematology/Lymphatic: reports: No Symptoms Vital Signs: Vital Signs Temperature 97.6 F 02/28/18 05:30 Pulse Rate 44 L 02/28/18 05:30 Respiratory Rate 16 02/28/18 05:30 Blood Pressure 126/63 02/28/18 05:30 O2 Sat by Pulse Oximetry (%) 98 02/28/18 09:00 Constitutional: Yes: No Distress, Calm, Thin Neck: Yes: Supple Respiratory: Yes: Regular, CTA Bilaterally Gastrointestinal: Yes: Normal Bowel Sounds, Soft Cardiovascular: Yes: Bradycardia JVD: No Carotid Bruit: No Heart Sounds: Yes: S1, S2 Edema: No - Other Data Labs, Other Data: CBC, BMP 02/26/18 13:12 02/26/18 13:12 INR, PTT INR 1.06 (0.83-1.09) 02/26/18 13:12 SB@48 PAC, LAE Tele: SB 40-50s no pauses Ejection Fraction %: LVEF > or = 40 % Imaging - Results Chest X-ray: Report Reviewed (NAD) Problem List - Problems (1) Dizziness Code(s): R42 - DIZZINESS AND GIDDINESS (2) Bradycardia Code(s): R00.1 - BRADYCARDIA, UNSPECIFIED (3) Hypercholesteremia Code(s): E78.0 - PURE HYPERCHOLESTEROLEMIA * DO NOT USE * (4) Hypertension Code(s): I10 - ESSENTIAL (PRIMARY) HYPERTENSION Qualifiers: Hypertension type: essential hypertension Qualified Code(s): I10 - Essential (primary) hypertension (5) Low back pain Code(s): M54.5 - LOW BACK PAIN Qualifiers: Chronicity: unspecified (6) Lumbosacral radiculopathy at L5 Code(s): M54.17 - RADICULOPATHY, LUMBOSACRAL REGION (7) Sinus bradycardia on ECG Code(s): R00.1 - BRADYCARDIA, UNSPECIFIED (8) Sleep apnea with use of continuous positive airway pressure (CPAP) Code(s): G47.30 - SLEEP APNEA, UNSPECIFIED Assessment/Plan 1. Sinus bradycardia with chronotropic competence and light-headedness since resolved 2. HTN 3. Hyperlipidemiua 4. COPD 5. Carotid disease 6. OSAS on cpap P:1. No therapy indicated for asymptomatic bradycardia with chronotropic competence, continue cpap nightly given nocturnal bradycardia 2. Continue losartan 25 qd, lipitor 10 qhs, HCTZ 25 qd 3. Patient may be d/tosha home with f/u in office with Dr. Vargas [phone] 4. Thank you for consultative opportunity
--- NOTE | 2018-02-28 15:44 | DS ---
Physical Examination Vital Signs: Vital Signs Temperature 97.6 F 02/28/18 05:30 Pulse Rate 44 L 02/28/18 05:30 Respiratory Rate 16 02/28/18 05:30 Blood Pressure 126/63 02/28/18 05:30 O2 Sat by Pulse Oximetry (%) 98 02/28/18 09:00 Constitutional: Yes: No Distress HENT: Yes: Atraumatic Neck: Yes: Supple Cardiovascular: Yes: Regular Rate and Rhythm Respiratory: Yes: CTA Bilaterally Gastrointestinal: Yes: Normal Bowel Sounds Extremities: Yes: WNL Neurological: Yes: Alert, Oriented Labs: CBC, BMP 02/26/18 13:12 02/26/18 13:12 Discharge Summary Reason For Visit: BRADYCARDIA Current Active Problems Dizziness (Acute) Bradycardia (Chronic) HIV (human immunodeficiency virus infection) (Chronic) Condition: Stable - Instructions Referrals: Linda Hooks DRAWBEN[employer] OPERATOR HELPER [Primary Care Provider] - Antwan Webster MD [Staff Physician] - Disposition: HOME - Home Medications Comprehensive Discharge Medication List: Ambulatory Orders Esomeprazole Magnesium 40 mg PO BID #60 capsule. 10/03/17 Diphenhydramine HCl [Benadryl Capsule -] 1 - 2 cap PO BID PRN #60 capsule MDD 4 11/10/17 Hydrocortisone 2.5% Topical Cr [Anusol-Hc -] 1 applic RC BID #1 tube 12/29/17 Losartan Potassium [Cozaar -] 1 tab PO DAILY 12/29/17 Baclofen 10 mg PO TID PRN #90 tablet 01/08/18 Ergocalciferol [Vitamin D2] 50,000 unit PO Q7D@1000 #4 capsule 01/08/18 Gabapentin [Neurontin -] 300 mg PO Q8H #90 capsule 01/08/18 Albuterol Sulfate Inhaler - [Ventolin HFA Inhaler -] 2 inh PO Q4H #1 inhaler Atorvastatin Calcium [Lipitor] 10 mg PO HS #30 tablet 01/29/18 Darunavir Ethanolate [Prezista -] 600 mg PO BID #60 tab 01/29/18 Emtricitabine/Tenofovir [Truvada -] 1 tab PO DAILY #30 tablet 01/29/18 Hydrochlorothiazide [Hctz -] 25 mg PO DAILY #30 tablet 01/29/18 Ritonavir [Norvir -] 100 mg PO BID #60 tab 01/29/18 Zolpidem Tartrate [Ambien] 10 mg PO HS PRN #30 tablet MDD 1 01/29/18 Naproxen 500 mg PO BID #60 tablet 02/07/18 Oxycodone HCl/Acetaminophen [Percocet 10-325 mg Tablet] 1 each PO TID #90 tablet MDD 3 02/07/18 cleared by cardiology to discharge fu with cardio in their office
== END 2018-02-28 16:27 | disposition home or self-care (01) | DRG 310 ==
LOC: JER 12:27 → JERBED 16:47 → J4W 20:32
PROVIDERS: ADMIT Internal Medicine; ATTEND Internal Medicine
DX: R00.1 Bradycardia, unspecified (principal); R42 Dizziness and giddiness; Z21 Asymptomatic human immunodeficiency virus [HIV] infection status; I10 Essential (primary) hypertension; E78.5 Hyperlipidemia, unspecified; K21.9 Gastro-esophageal reflux disease without esophagitis; M54.5 Low back pain; G47.33 Obstructive sleep apnea (adult) (pediatric); J44.9 Chronic obstructive pulmonary disease, unspecified; Z87.891 Personal history of nicotine dependence
CPT/HCPCS: 36415; 71045-TC-FY; 80053; 81003; 81015; 82550; 82553; 83735; 84484; 85025; 85610; 87086; 93005; 93010; 99285-25; 99401-25; G0463-25; J7030

== ENCOUNTER 2018-09-26 06:07 | Day surgery (SDC) | payer OTHER ==
[2018-09-25 10:22] VITALS: BMI 26.8
[~2018-09-26 06:07] MED LIST: BSS (NA/CA/MG/K) BALANCED SALT SOLUTION OPHTH SOLN 15 ML BOTTLE OS ONE; CHONDROITIN SU A/HYALUR SOD 1 KIT IO ONE; EPINEPHrine/PF 1 MG/1 ML (1:1,000) AMPULE SQ ONE; LIDOCAINE HCL 1% PRESERVATIVE FREE - 30ML VIAL IO ONE; POVIDONE-IODINE 5% OPHTHALMIC PREP 30 ML SOLUTION OS ONE; TETRACAINE 0.5% OPHTH SOLN 2 ML BOTTLE OS ONE; TRYPAN BLUE 0.5 ML DISP.SYRIN IO ONE
[2018-09-26] MEDS ORDERED: TROPICAMIDE 1% OPHTH SOLN 15 ML BOTTLE ONE (06:20)
[2018-09-26] MEDS ORDERED: PHENYLEPHRINE 2.5% OPHTH SOLN 15 ML BOTTLE ONE (06:20)
[2018-09-26] MEDS ORDERED: CYCLOPENTOLATE HCL 1% OPHTH SOLN 2 ML BOTTLE ONE (06:20)
[2018-09-26] MEDS ORDERED: OFLOXACIN 0.3% OPHTHALMIC SOLUTION 5 ML BOTTLE ONE (06:20)
[2018-09-26] MEDS ORDERED: KETOROLAC TROMETHAMINE 0.5% EYE DROP 1 DROP DROPS ONE (06:20)
[2018-09-26] MEDS: PHENYLEPHRINE 2.5% OPHTH SOLN 15 ML BOTTLE OP SCH ×3 (06:40→06:55)
[2018-09-26] MEDS: TROPICAMIDE 1% OPHTH SOLN 15 ML BOTTLE OP SCH ×3 (06:40→06:55)
[2018-09-26] MEDS: KETOROLAC TROMETHAMINE 0.5% EYE DROP 1 DROP DROPS OP SCH ×3 (06:40→06:55)
[2018-09-26] MEDS: OFLOXACIN 0.3% OPHTHALMIC SOLUTION 5 ML BOTTLE OP SCH ×3 (06:40→06:55)
[2018-09-26] MEDS: CYCLOPENTOLATE HCL 1% OPHTH SOLN 2 ML BOTTLE OP SCH ×3 (06:40→06:55)
[2018-09-26] MEDS ORDERED: ACETAMINOPHEN 325 MG TABLET (FP) PO PRN (07:00)
[2018-09-26] MEDS ORDERED: CHONDROITIN SU A/HYALUR SOD 1 KIT ONE (07:11)
[2018-09-26] MEDS ORDERED: EPINEPHrine/PF 1 MG/1 ML (1:1,000) AMPULE ONE (07:19)
[2018-09-26] MEDS ORDERED: VANCOMYCIN 500 MG VIAL (RESTRICTED TO ID ONLY) ONE (07:19)
[2018-09-26] MEDS ORDERED: LIDOCAINE HCL/PF 1% SDV 5ML VIAL ONE (07:20)
[2018-09-26] MEDS ORDERED: TRYPAN BLUE 0.5 ML DISP.SYRIN ONE (07:20)
[2018-09-26] MEDS ORDERED: BSS (NA/CA/MG/K) BALANCED SALT SOLUTION OPHTH SOLN 15 ML BOTTLE ONE (07:20)
[2018-09-26] MEDS ORDERED: POVIDONE-IODINE 5% OPHTHALMIC PREP 30 ML SOLUTION ONE (07:20)
[2018-09-26] MEDS ORDERED: TETRACAINE 0.5% OPHTH SOLN 2 ML BOTTLE ONE (07:20)
[2018-09-26] MEDS ORDERED: WATER FOR INJ,STERILE 10 ML ONE (07:20)
[2018-09-26] MEDS ORDERED: MIDAZOLAM HCL 2 MG/2 ML SINGLE DOSE VIAL ONE (08:03)
[2018-09-26] MEDS ORDERED: TETRACAINE 0.5% OPHTH SOLN 2 ML BOTTLE OS ONE (08:08)
[2018-09-26] MEDS ORDERED: POVIDONE-IODINE 5% OPHTHALMIC PREP 30 ML SOLUTION OS ONE (08:09)
[2018-09-26] MEDS ORDERED: BSS (NA/CA/MG/K) BALANCED SALT SOLUTION OPHTH SOLN 15 ML BOTTLE OS ONE (08:17)
[2018-09-26] MEDS ORDERED: LIDOCAINE HCL 1% PRESERVATIVE FREE - 30ML VIAL IO ONE (08:17)
[2018-09-26] MEDS ORDERED: CHONDROITIN SU A/HYALUR SOD 1 KIT IO ONE (08:17)
[2018-09-26] MEDS ORDERED: EPINEPHrine/PF 1 MG/1 ML (1:1,000) AMPULE SQ ONE (08:25)
--- NOTE | 2018-09-26 09:24 | SPEC ---
DATE OF OPERATION: DATE OF DICTATION: 09/26/2018 PREOPERATIVE DIAGNOSIS: Cataract, left eye. POSTOPERATIVE DIAGNOSIS: Cataract, left eye. OPERATION: Phacoemulsification of left cataract with posterior chamber intraocular lens implantation, left eye. Lens used [id number], 21.5-diopter power, serial number [id number]. SURGEON: Parish Bautista MD ANESTHESIA: Topical MAC. COMPLICATIONS: None. PROCEDURE: The patient was brought to the operating room and correctly identified along with the operative site and the correct intraocular lens ruiz. The patient was then prepped and draped in the usual sterile fashion including 5% Betadine solution in the conjunctival sac and an eyelid drape. An eyelid speculum was then placed in the eye. A paracentesis port was created and approximately 0.5 mL of preservative-free lidocaine was then injected into the eye. Viscoelastic was then injected to inflate the anterior chamber. A temporal clear corneal wound was created. A continuous circular capsulorrhexis was performed. The nucleus was then hydrodissected with BSS and removed with phacoemulsification. The remaining cortical material was irrigated and aspirated. Viscoelastic was injected to inflate the capsular bag and the intraocular lens was then implanted into the capsular bag. The remaining viscoelastic was irrigated and aspirated from the eye. The IOL was noted to be well centered and completely covered by the anterior capsulorrhexis. Topical vancomycin was placed and the eye patched and shielded. All wounds were tested and found to be watertight. No suture was placed. The eye was then shielded. The patient was then discharged from the operating room in stable condition. PARISH BAUTISTA M.D. MELISSA/[id number] [facility]
[2018-09-26 09:43] VITALS: BP 124/63; PULSE 65; TEMP 97.7
== END 2018-09-26 09:40 | disposition home or self-care (01) ==
LOC: JASU-SURG 06:07
PROVIDERS: ATTEND Ophthalmology
PROC: 08RK3JZ Replacement of Left Lens with Synthetic Substitute, Percutaneous Approach (ICD-10-PCS; principal; 2018-09-26 08:00)
DX: H26.9 Unspecified cataract (principal)

== ENCOUNTER 2020-12-03 05:17 | Day surgery (SDC) | payer OTHER ==
[2020-12-01 15:17] VITALS: BMI 26.4
[2020-12-03 13:28] VITALS: TEMP 97.5
[2020-12-03 14:32] VITALS: BP 154/82; PULSE 50
== END 2020-12-03 14:20 | disposition home or self-care (01) ==
LOC: JASU-ENDO 05:17
PROVIDERS: ATTEND Internal Medicine Gastroenterology
PROC: 0DB68ZX Excision of Stomach, Via Natural or Artificial Opening Endoscopic, Diagnostic (ICD-10-PCS; principal; 2020-12-03 11:30)
DX: K21.9 Gastro-esophageal reflux disease without esophagitis (principal); K44.9 Diaphragmatic hernia without obstruction or gangrene; K29.50 Unspecified chronic gastritis without bleeding
CPT/HCPCS: 88305-TC; 88342-TC

== ENCOUNTER 2021-01-07 04:34 | Day surgery (SDC) | payer OTHER ==
[2021-01-06 10:32] VITALS: BMI 26.4
[2021-01-07 10:17] VITALS: TEMP 98
[2021-01-07 12:46] VITALS: BP 131/63; PULSE 53
== END 2021-01-07 11:50 | disposition home or self-care (01) ==
LOC: JASU-ENDO 04:34
PROVIDERS: ATTEND Internal Medicine Gastroenterology
PROC: 0DBP8ZX Excision of Rectum, Via Natural or Artificial Opening Endoscopic, Diagnostic (ICD-10-PCS; principal; 2021-01-07 09:45)
DX: Z51.11 Encounter for antineoplastic chemotherapy (principal); K62.1 Rectal polyp; K57.30 Diverticulosis of large intestine without perforation or abscess without bleeding
CPT/HCPCS: 88305-TC

== ENCOUNTER 2022-04-14 04:12 | Day surgery (SDC) | payer OTHER ==
[2022-04-11 13:46] VITALS: BMI 25.3
[~2022-04-14 04:12] MED LIST changes: -BSS (NA/CA/MG/K) BALANCED SALT SOLUTION OPHTH SOLN 15 ML BOTTLE OS ONE; -CHONDROITIN SU A/HYALUR SOD 1 KIT IO ONE; -EPINEPHrine/PF 1 MG/1 ML (1:1,000) AMPULE SQ ONE; +HEPARIN NA (PORCINE) 5,000 UNITS/ML 1ML VIAL IVPUSH ONE; -LIDOCAINE HCL 1% PRESERVATIVE FREE - 30ML VIAL IO ONE; +LIDOCAINE HCL 1%, 10 MG/ML (20ML VIAL) NR ONE; -POVIDONE-IODINE 5% OPHTHALMIC PREP 30 ML SOLUTION OS ONE; -TETRACAINE 0.5% OPHTH SOLN 2 ML BOTTLE OS ONE; -TRYPAN BLUE 0.5 ML DISP.SYRIN IO ONE
[2022-04-14] MEDS ORDERED: NITROGLYCERIN 50 MG/10 ML VIAL IVPB ONE (07:27)
[2022-04-14] MEDS ORDERED: THROMBIN (BOVINE) 5,000 UNIT VIAL TP ONE (07:27)
[2022-04-14] MEDS ORDERED: LIDOCAINE HCL 1%, 10 MG/ML (20ML VIAL) ONE (07:27)
[2022-04-14] MEDS ORDERED: HEPARIN NA (PORCINE) 5,000 UNITS/ML 1ML VIAL ONE (07:28)
[2022-04-14] MEDS ORDERED: DEXMEDETOMIDINE HCL 200 MCG/2 ML IVPB ONE (10:40)
[2022-04-14] MEDS ORDERED: MIDAZOLAM HCL 2 MG/2 ML SINGLE DOSE VIAL ONE (10:45)
[2022-04-14] MEDS ORDERED: LIDOCAINE HCL 1%, 10 MG/ML (20ML VIAL) NR ONE ×2 (11:27)
[2022-04-14] MEDS ORDERED: IOHEXOL 300 MG/ML INFUS..BTL IV ONE (11:27)
[2022-04-14] MEDS ORDERED: ceFAZolin SODIUM 1 GM VIAL IVPB ONE (11:27)
[2022-04-14] MEDS ORDERED: ceFAZolin SODIUM 1 GM VIAL ONE (11:27)
[2022-04-14] MEDS ORDERED: HEPARIN NA (PORCINE) 5,000 UNITS/ML 1ML VIAL IVPUSH ONE (11:31)
[2022-04-14] MEDS ORDERED: CLOPIDOGREL BISULFATE 75 MG TABLET (FP) PO ONE ×2 (12:07→12:39)
[2022-04-14] MEDS ORDERED: PROMETHAZINE HCL 25 MG/1 ML VIAL IVPUSH PRN (12:10)
[2022-04-14] MEDS ORDERED: ONDANSETRON 4 MG/2 ML VIAL IVPUSH PRN (12:10)
[2022-04-14] MEDS ORDERED: oxyCODONE HCL 5 MG TABLET PO PRN ×2 (12:10)
[2022-04-14] MEDS ORDERED: LACTATED RINGERS SOLUTION 1,000 ML IV SCH (12:15)
[2022-04-14 13:43] VITALS: PULSE 52; RESP 16; TEMP 98.8
[2022-04-14] MEDS ORDERED: ACETAMINOPHEN 325 MG TABLET (FP) ONE (14:14)
[2022-04-14 14:18] VITALS: BP 145/60
[2022-04-14] MEDS ORDERED: ACETAMINOPHEN 325 MG TABLET (FP) PO ONE (14:18)
== END 2022-04-14 14:25 | disposition home or self-care (01) ==
LOC: JASU-SURG 04:12
PROVIDERS: ATTEND Surgery Vascular Surgery
PROC: 047M3Z1 Dilation of Right Popliteal Artery using Drug-Coated Balloon, Percutaneous Approach (ICD-10-PCS; principal; 2022-04-14 11:00)
DX: I70.211 Atherosclerosis of native arteries of extremities with intermittent claudication, right leg (principal)
CPT/HCPCS: 37225; C2623; 76000-TC-FY; 94760; C1760; J1644

== ENCOUNTER 2023-10-26 16:23 | Emergency (ER) | payer OTHER ==
[2023-10-26] MEDS ORDERED: LIDOCAINE 4% PATCH TP ONE (17:09)
[2023-10-26] MEDS ORDERED: ACETAMINOPHEN 325 MG TABLET (FP) ONE (17:09)
[2023-10-26] MEDS: LIDOCAINE 4% PATCH TP ONE (17:32)
[2023-10-26] MEDS: ACETAMINOPHEN 500 MG TABLET (FP) PO ONE (17:32)
[2023-10-26 21:05] VITALS: PULSE 85; RESP 12; TEMP 97.8; BMI 27.3
[2023-10-26 21:08] VITALS: BP 138/90
[2023-10-26] MEDS ORDERED: LIDOCAINE PATCH REMOVAL MC SCH (22:00)
== END 2023-10-26 21:18 | disposition home or self-care (01) ==
LOC: JER 16:23
DX: M54.2 Cervicalgia (principal); M25.551 Pain in right hip; V47.6XXA Car passenger injured in collision with fixed or stationary object in traffic accident, initial encounter; Y92.828 Other wilderness area as the place of occurrence of the external cause
CPT/HCPCS: 70450-TC; 71045-TC-FY; 72125-TC; 72170-TC-FY

== ENCOUNTER 2024-10-23 06:25 | Day surgery (SDC) | payer OTHER ==
[2024-10-18 14:19] VITALS: BMI 26.2
[2024-10-23 06:30] VITALS: RESP 18
[2024-10-23] MEDS ORDERED: KETOROLAC TROMETHAMINE 0.5% EYE DROP 1 DROP DROPS ONE (06:34)
[2024-10-23] MEDS ORDERED: PHENYLEPHRINE 2.5% OPTHALMIC DROP 2ML BOTTLE ONE (06:34)
[2024-10-23] MEDS ORDERED: TROPICAMIDE 1% OPHTH SOLN 15 ML BOTTLE ONE (06:34)
[2024-10-23] MEDS ORDERED: CYCLOPENTOLATE HCL 1% OPHTH SOLN 2 ML BOTTLE ONE (06:34)
[2024-10-23] MEDS ORDERED: OFLOXACIN 0.3% OPHTHALMIC SOLUTION 5 ML BOTTLE ONE (06:35)
[2024-10-23] MEDS: CYCLOPENTOLATE HCL 1% OPHTH SOLN 2 ML BOTTLE OP SCH (06:45)
[2024-10-23] MEDS: TROPICAMIDE 1% OPHTH SOLN 15 ML BOTTLE OP SCH (06:46)
[2024-10-23] MEDS: KETOROLAC TROMETHAMINE 0.5% EYE DROP 1 DROP DROPS OP SCH (06:46)
[2024-10-23] MEDS: OFLOXACIN 0.3% OPHTHALMIC SOLUTION 5 ML BOTTLE OP SCH (06:47)
[2024-10-23] MEDS: PHENYLEPHRINE 2.5% OPHTH SOLN 15 ML BOTTLE OP SCH (06:47)
[2024-10-23] MEDS ORDERED: LIDOCAINE HCL/PF 1% SDV 5ML VIAL ONE (07:33)
[2024-10-23] MEDS ORDERED: EPINEPHrine 1:1000 P/F - 1 MG/ML AMP ONE (07:33)
[2024-10-23] MEDS ORDERED: VANCOMYCIN 500 MG VIAL (RESTRICTED TO ID ONLY) ONE (07:34)
[2024-10-23] MEDS ORDERED: POVIDONE-IODINE 5% OPHTHALMIC PREP 30 ML SOLUTION ONE (07:34)
[2024-10-23] MEDS ORDERED: TETRACAINE 0.5% OPHTH SOLN 2 ML BOTTLE ONE (07:34)
[2024-10-23] MEDS ORDERED: MIDAZOLAM HCL 2 MG/2 ML SINGLE DOSE VIAL ONE (07:57)
[2024-10-23] MEDS: TETRACAINE 0.5% OPHTH SOLN 2 ML BOTTLE OD ONE (08:02)
[2024-10-23] MEDS: POVIDONE-IODINE 5% OPHTHALMIC PREP 30 ML SOLUTION OD ONE (08:03)
[2024-10-23] MEDS: BSS (NA/CA/MG/K) BALANCED SALT SOLUTION OPHTH SOLN 15 ML BOTTLE OD ONE (08:10)
[2024-10-23] MEDS: LIDOCAINE HCL 1% PRESERVATIVE FREE - 30ML VIAL IO ONE (08:11)
[2024-10-23] MEDS: CHONDROITIN SU A/HYALUR SOD 1 KIT IO ONE (08:12)
[2024-10-23] MEDS: EPINEPHrine 1:1000 P/F - 1 MG/ML AMP IO ONE (08:21)
[2024-10-23] MEDS: VANCOMYCIN 500 MG VIAL (RESTRICTED TO ID ONLY) IVPB ONE ×2 (08:32)
[2024-10-23] MEDS ORDERED: ACETAMINOPHEN 325 MG TABLET (FP) ONE (09:09)
[2024-10-23] MEDS: ACETAMINOPHEN 325 MG TABLET (FP) PO PRN (09:11)
[2024-10-23 10:03] VITALS: BP 131/61; PULSE 69; TEMP 97.9
== END 2024-10-23 09:57 | disposition home or self-care (01) ==
LOC: JASU-SURG 06:25
PROVIDERS: ATTEND Ophthalmology
PROC: 08RJ3JZ Replacement of Right Lens with Synthetic Substitute, Percutaneous Approach (ICD-10-PCS; principal; 2024-10-23 08:00)
DX: H26.9 Unspecified cataract (principal)
CPT/HCPCS: V2632